=== PATIENT | female | born 1970 | race Caucasian/White ===

== ENCOUNTER 2018-02-27 06:08 | Day surgery (SDC) | payer BC ==
[2018-02-22 14:58] VITALS: BMI 29.9
[2018-02-22 15:15] LABS: BASO % 0.8 % (0-2.0); EOS % 1.2 % (0-4.5); HEMOGLOBIN 13.8 GM/dL (10.7-15.3); LYMPH % 29.4 % (8-40); MCH 31.9 pg (25.7-33.7); MCHC 33.7 g/dl (32.0-36.0); MEAN CELL VOLUME 94.6 fl (80-96); MONO % 11.8 % (3.8-10.2); NEUT % 56.8 % (42.8-82.8); PLATELET COUNT 294 K/MM3 (134-434); RBC 4.34 M/mm3 (3.60-5.2); RDW 12.9 % (11.6-15.6); WHITE BLOOD COUNT 5.7 K/mm3 (4.0-10.0)
[2018-02-22 15:37] LABS: PROTHROMBIN TIME (PATIENT) 11.3 SEC (9.7-13.0)
[2018-02-22 15:38] LABS: ANION GAP 8 (8-16); BILIRUBIN,TOTAL 0.6 mg/dL (0.2-1.0); BLOOD UREA NITROGEN 17 mg/dL (7-18); CALCIUM 9.3 mg/dL (8.5-10.1); CHLORIDE 103 mmol/L (98-107); CO2 27 mmol/L (21-32); GLUCOSE,RANDOM 99 mg/dL (74-106); POTASSIUM 4.3 mmol/L (3.5-5.1); SGOT/AST 26 U/L (15-37); SGPT/ALT 27 U/L (12-78); SODIUM 138 mmol/L (136-145); TOT PROT 7.6 g/dl (6.4-8.2)
[2018-02-22 15:39] LABS: ACTIVATED PTT 27.8 SECONDS (25.2-36.5)
[2018-02-22 15:41] LABS: ALK PHOS 47 U/L (45-117)
[2018-02-27] MEDS ORDERED: DEXAMETHASONE SOD PHOSPHATE 4 MG/1 ML VIAL ONE (06:59)
[2018-02-27] MEDS ORDERED: PROPOFOL 20 ML ONE ×2 (06:59)
[2018-02-27] MEDS ORDERED: KETOROLAC TROMETHAMINE 30 MG/1 ML VIAL ONE (06:59)
[2018-02-27] MEDS ORDERED: MIDAZOLAM HCL 2 MG/2 ML SINGLE DOSE VIAL ONE (06:59)
[2018-02-27] MEDS ORDERED: SUCCINYLCHOLINE CHLORIDE 200 MG/10 ML VIAL ONE (06:59)
--- NOTE | 2018-02-27 07:11 | HP ---
[facility] - Chief Complaint Chief Complaint: This patient is admitted to have an endometrial ablation for treatment of menorrhagia. Patient will also have colposcopy and cervical biopsies to evaluate an abnormal pap (ASCUS). History of Present Illness: The patient has a long history of menorrhagia and has been treated with IM progestigins. Patient has decided to have permanent treatment with endometrial ablation. History Source: Patient Limitations to Obtaining History: No Limitations - Past Medical History Allergies/Adverse Reactions: Allergies Allergy/AdvReac Type Severity Reaction Status Date / Time No Known Allergies Allergy Verified 02/27/18 06:39 CO PILOT: No: Alzheimer's, CVA, Dementia, Migraine, Multiple Sclerosis, Peripheral Neuropathy, Parkinson's, Seizure, Syncope, TIA, Vertigo, Other Cardiovascular: No: AFIB, Aneurysm, Aortic Insufficiency, Aortic Stenosis, CAD, CHF, Deep Vein Thrombosis, HTN, Hyperlipdemia, [place], Mitral Insufficiency, Mitral Stenosis, Murmur, Pulmonary Hypertension, Other Pulmonary: No: Asthma, Bronchitis, Cancer, COPD, O2 Dependent, Pneumonia, Previously Intubated, Pulmonary Embolus, Pulmonary Fibrosis, Sleep Apnea, Other Gastrointestinal: No: Ascites, Cancer, Constipation, Crohn's Disease, Diverticulitis, Diverticulosis, Esophageal Varices, Gastritis, GERD, GI Bleed, Hemorrhoids, Hiatal Hernia, Inflamatory Bowel Disease, Irritable Bowel Disease, Pancreatitis, Peptic Ulcer Disease, Ulcerative Colitis, Other Hepatobiliary: No: Cirrhosis, Cholelithiasis, Cholecystitis, Choledocholithiasis , Hepatitis A, Hepatitis B, Hepatitis C, Other Renal/: No: Renal Failure, Renal Inusuff, BPH, Cancer, Hematuria, Hemodialysis , Neurogenic Bladder, Renal Calculi, UTI, Other Reproductive: No: Ectopic , Endometriosis, Fibroids, PID, Polycystic Ovary Syndrome, Postmenopausal, Other ...: No ...: 2 ...Para: 2 Heme/Onc: Yes: Anemia, B12 Deficiency, Bleeding Disorder, Cancer, Current Chemotherapy, Current Radiation Therapy, Hemochromatosis, Hypercoaguable State, Myeloproliferative Synd, Sickle Cell Disease, Sickle Cell Trait, Thrombocytopenia, Other Infectious Disease: Yes: AIDS, C-Diff, Herpes Zoster, HIV, MRSA, STD's, Tuberculosis, VREF, Other Musculoskeletal: Yes: Bursitis, Chronic low back pain, Hemiparesis, Hemiplegia, Osteoarthritis, Paraplegia, Other Rheumatology: Yes: Fibromyalgia, Gout, Lupus, Rheumatoid Arthritis, Sarcoidosis , Vasculitis, Other ENT: No: Allergic Rhinitis, Sinusitis, Other Endocrine: No: Weld's Disease, [place]'s Disease, Diabetes Insipidus, Diabetes Mellitus, Hyperparathyroidism, Hyperthyroidism, Hypothyroidism, Osteopenia, SIADH, Other Dermatology: No: Basal Cell, Cellulitis, Eczema, Melanoma, Psoriasis, Squamous Cell, Other - Current Medications Current Medications: Home Medications Medication Instructions Recorded NK [No Known Home Medication] 02/22/18 Satellite Physical Exam - Physical Examination Vital Signs: Vital Signs Period Temp Pulse Resp BP Sys/Velasquez Pulse Ox Last 24 Hr 98.2 F 80 20 133/68 100 General Appearance: Well Nourished, Well Developed, Alert & Oriented x3 ENT: Clear, No Discharge, No masses Lung: Clear to auscultation Heart: Regular rate & rhythm, Normal S1, Normal S2 Breasts: Soft, Non-Tender, No masses bilaterally Abdomen: Soft, No tenderness, No CVA Extremities: No edema, No tenderness/swelling Pelvic Exam: Within normal limits External Genitalia, Within normal limits Vagina, Within normal limits Cervix, Within normal limits Uterus, Within normal limits [place] [facility]: Intact, Alert, Oriented Satellite Impression/Plan - Impression/Plan Impression: Menorrhagia and abnormal pap test treatment and evaluation Operative Procedure: D/C and endometrial ablation and colposopic evaluation and LEEP biopsies of cervix Date to be Performed: 02/27/18
[2018-02-27] MEDS ORDERED: ceFAZolin SODIUM 1 GM VIAL ONE (07:44)
[2018-02-27] MEDS ORDERED: ceFAZolin SODIUM 1 GM VIAL IVPB ONE (07:49)
[2018-02-27] MEDS ORDERED: ACETAMINOPHEN INJECTION 100 ML IVPB ONE (08:43)
[2018-02-27] MEDS ORDERED: ONDANSETRON 4 MG/2 ML VIAL IVPUSH PRN (08:44)
[2018-02-27] MEDS ORDERED: ACETAMINOPHEN 1000 MG/100 ML VIAL (NON FORMULARY) IVPB ONE (08:44)
[2018-02-27] MEDS ORDERED: oxyCODONE HCL 5 MG TABLET PO PRN (08:44)
[2018-02-27] MEDS ORDERED: LACTATED RINGERS SOLUTION 1,000 ML IV SCH (08:45)
[2018-02-27] MEDS ORDERED: DESFLURANE GAS 240 ML BOTTLE IH ONE (08:51)
[2018-02-27] MEDS ORDERED: SEVOFLURANE 250 ML BTL ONE (08:51)
[2018-02-27] MEDS ORDERED: ONDANSETRON 4 MG/2 ML VIAL ONE (09:32)
[2018-02-27] MEDS ORDERED: METOCLOPRAMIDE HCL INJECTION 10 MG/2 ML VIAL ONE (09:32)
[2018-02-27 10:17] VITALS: TEMP 97.9
[2018-02-27] MEDS ORDERED: oxyCODONE HCL 5 MG TABLET ONE (10:37)
[2018-02-27] MEDS ORDERED: oxyCODONE HCL 5 MG TABLET PO ONE (10:40)
--- NOTE | 2018-02-27 10:40 | OP ---
DATE OF OPERATION: 02/27/2018 PREOPERATIVE DIAGNOSIS: Menorrhagia, abnormal Pap smear characterized by atypical squamous cells of undetermined significance. OPERATIVE PROCEDURE: Colposcopy, cervical biopsies, endocervical curettage, dilation and curettage, endometrial curettage, and endometrial ablation. DESCRIPTION OF PROCEDURE: The patient was brought to the operating room and placed in the supine position, given anesthesia by the anesthesiologist, placed in the lithotomy position, prepped and draped in the usual manner for colposcopy. The speculum was in the vagina. The cervix was treated with acetic acid. Colposcopic examination of the cervix was normal. No lesions were noted. The T zone was not visualized. An endocervical curettage was carried out, and cervical biopsies were taken from 6, 9, 12, and 3 o'clock. After the culposcopic procedure was done, the uterus was sounded to 8 cm. A small curette was used to obtain endometrial tissue, and the endometrial tissue was sent to Pathology. The cervix was then dilated with Serra dilators, and the thermal hydroablation was completed using the hydrothermal ablation instruments. The patient tolerated the procedure well. The procedure went smoothly and took 10 minutes. The estimated blood loss from all of the procedures was approximately 10 mL. The patient did well. There was good hemostasis. The cervical areas were cauterized using a ball curette. The tenaculum areas were also cauterized using the ball curette 50/50 blend 1 wattage. The patient did well and was transferred to the recovery room in good condition. AGAPITO MATA M.D. [id number]
[2018-02-27 11:07] VITALS: PULSE 52
[2018-02-27 11:53] VITALS: BP 132/70
--- NOTE | 2018-03-02 17:33 | PATH ---
Surgical Pathology Report Patient Name: CB GARRIDO [facility]. Rec. #: [id number] /Age/Gender: 1970 (Age: 47) / F Account: [id number] Location: [facility] SURGICAL Taken: 02/27/2018 Received: 02/27/2018 Reported: 03/02/2018 Physicians: Johan Meier M.D. Specimen(s) Received A: ENDOCERVICAL CURETTINGS B: CERVICAL BX 9:00 C: CERVICAL BX 3:00 D: CERVICAL BX 12:00 E: CERVICAL BX 6:00 F: ENDOMETRIAL CURETTINGS Clinical History Menorrhagia Final Diagnosis A. ENDOCERVICAL CURETTINGS: FRAGMENTS OF ENDOCERVICAL TISSUE AND ONE FRAGMENT OF SQUAMOUS EPITHELIUM, NO DIAGNOSTIC ABNORMALITIES. B. CERVICAL BIOPSY 9:00: SQUAMOUS EPITHELIUM WITH NO DIAGNOSTIC ABNORMALITIES. C. CERVICAL BIOPSY 3:00: SQUAMOUS EPITHELIUM WITH NO DIAGNOSTIC ABNORMALITIES. D. CERVICAL BIOPSY 12:00: SQUAMOUS EPITHELIUM WITH NO DIAGNOSTIC ABNORMALITIES: E. CERVICAL BIOPSY 6:00: SQUAMOUS EPITHELIUM WITH NO DIAGNOSTIC ABNORMALITIES: F. ENDOMETRIAL CURETTINGS: PROLIFERATIVE ENDOMETRIUM WITH MILD CHRONIC ENDOMETRITIS. SEPARATE ENDOCERVICAL TISSUE WITH NO DIAGNOSTIC ABNORMALITIES. Electronically Signed Venkatesh Mustafa M.D. Gross Description A. Received in formalin labeled "endocervical curettings" is a 1.2 x 1.0 x 0.4 aggregate of blood-tinged mucus, possibly containing soft tissue fragments. The specimen is currently submitted in one cassette B. Received in formalin labeled "cervical biopsy 9:00," is a 0.5 x 0.5 x 0.2 cm grey, unoriented portion of soft tissue which is partially surfaced by a grey mucosa. The specimen is inked blue and bisected. The specimen is entirely submitted in one cassette. C. Received in formalin labeled "cervical biopsy 3:00," is a 0.4 x 0.2 x 0.2 cm grey, unoriented portion of soft tissue which is partially surfaced by grey mucosa. The specimen is inked blue and submitted in toto in one cassette. D. Received in formalin labeled "cervical biopsy 12:00," is a 0.4 x 0.4 x 0.2 cm grey, unoriented portion of soft tissue which is partially surfaced by a grey mucosa. The specimen is inked blue and bisected. The specimen is entirely submitted in one cassette. E. Received in formalin labeled "cervical biopsy 6:00," are 2 grey soft tissue fragments averaging 0.3 cm in greatest dimension. The specimen is submitted in toto in one cassette. F. Received in formalin labeled "endometrial curettings," is a 1.0 x 0.9 x 0.2 cm aggregate of grey soft tissue fragments admixed with mucus. The specimen is entirely submitted in one cassette. 02/27/2018 [facility]02/27/2018
== END 2018-02-27 11:53 | disposition home or self-care (01) ==
LOC: JASU-SURG 06:08
PROVIDERS: ATTEND Obstetrics & Gynecology
PROC: 0UJH8ZZ Inspection of Vagina and Cul-de-sac, Via Natural or Artificial Opening Endoscopic (ICD-10-PCS; principal; 2018-02-27 07:30)
PROC: 0UDB7ZX Extraction of Endometrium, Via Natural or Artificial Opening, Diagnostic (ICD-10-PCS; 2018-02-27 07:30)
PROC: 10D07Z8 Extraction of Products of Conception, Other, Via Natural or Artificial Opening (ICD-10-PCS; 2018-02-27 07:30)
DX: N92.0 Excessive and frequent menstruation with regular cycle (principal); R87.619 Unspecified abnormal cytological findings in specimens from cervix uteri
CPT/HCPCS: 36415; 80053; 84702; 84703; 85025; 85610; 85730; 86850; 86900; 86901; 88305-TC; 94760; J0131

== ENCOUNTER → 2018-02-27 | Day surgery (SDC) | payer BC ==
--- NOTE | 2018-02-27 23:36 | OP ---
DATE OF OPERATION: 02/27/2018 PREOPERATIVE DIAGNOSIS: Liparous mass 11 o'clock, 2 cm from the nipple. POSTOPERATIVE DIAGNOSIS: Liparous mass 11 o'clock, 2 cm from the nipple. PROCEDURE: Left ultrasound guided core biopsy with bowtie clip placement. ANESTHESIA: Local. ATTENDING: Alan Rincon M.D. ESTIMATED BLOOD LOSS: Minimal. COMPLICATIONS: None. DESCRIPTION OF PROCEDURE: Patient was made aware of the risks and benefits of the procedure and consented. She was placed in supine position under sterile conditions with 1% lidocaine for local anesthesia, an 18 gauge needle was first used to try to aspirate the lesion. This was unsuccessful, so then we transferred to a core biopsy. Small carlos was made in the skin, and using a 13-gauge suction biopsy device via a approach under ultrasound guidance, multiple cores were obtained and submitted to pathology. Likewise under ultrasound guidance, bowtie clip was placed into the biopsy region. Well tolerated by the patient. Steri-Strips, sterile bandage was applied. . ALAN RINCON M.D. [id number]
--- NOTE | 2018-03-02 17:02 | PATH ---
Surgical Pathology Report Patient Name: CB GARRIDO [facility]. Rec. #: [id number] /Age/Gender: 1970 (Age: 47) / F Account: [id number] Location: Taken: 02/27/2018 Received: 02/27/2018 Reported: 03/02/2018 Physicians: Haroon Duffy M.D. Specimen(s) Received LEFT BREAST 11:00 2 CM FN CORE BIOPSY Clinical History Non-palpable lesion Ultrasound findings: Cystic lesion Final Diagnosis BREAST, LEFT, 11:00, 2 CM FN, CORE BIOPSY: BENIGN BREAST TISSUE SHOWING FIBROCYSTIC CHANGES INCLUDING MICROCYST FORMATION AND STROMAL FIBROSIS. Electronically Signed Tamiko Piper M.D. Gross Description Received in formalin, and indicated on the requisition to be "left breast core biopsy 11:00, 2 CMFN," are 5 grey-yellow, cylindrical portions of fibroadipose tissue ranging from 0.7-1.7 cm in length and averaging 0.2 cm in diameter. The specimens are submitted in toto in one cassette. Time to formalin fixation: Not given Total formalin fixation time: Approximately 26 hours 02/28/201802/28/2018
== END | disposition home or self-care (01) ==
LOC: FRADUS-SUR 14:51
PROVIDERS: ATTEND Surgery
PROC: 0HBU3ZX Excision of Left Breast, Percutaneous Approach, Diagnostic (ICD-10-PCS; principal; 2018-02-27)
DX: N60.32 Fibrosclerosis of left breast (principal); N63.22 Unspecified lump in the left breast, upper inner quadrant; N64.89 Other specified disorders of breast
CPT/HCPCS: 19083; 87899; 88305-TC; A4648

== ENCOUNTER 2021-07-31 10:00 | Day surgery (SDC) | payer BC ==
[2021-07-20 12:52] VITALS: BMI 26.9
[2021-07-31 14:00] VITALS: TEMP 98
[2021-07-31 14:36] VITALS: BP 120/68; PULSE 64
== END 2021-07-31 14:36 | disposition home or self-care (01) ==
LOC: FASU 10:00
PROVIDERS: ATTEND Orthopaedic Surgery
PROC: 0LN33ZZ Release Right Upper Arm Tendon, Percutaneous Approach (ICD-10-PCS; principal; 2021-07-31)
PROC: XK02303 Introduction of Concentrated Bone Marrow Aspirate into Muscle, Percutaneous Approach, New Technology Group 3 (ICD-10-PCS; 2021-07-31)
DX: M77.11 Lateral epicondylitis, right elbow (principal)
CPT/HCPCS: 0232T; 24357; 84703